=== PATIENT | female | born 1980 | race Caucasian/White ===

== ENCOUNTER 2021-06-19 15:37 | Emergency (ER) | payer SELFPAY ==
[~2021-06-19] VITALS: Ht 172.7 cm; Wt 59.9 kg
[2021-06-19 15:55] VITALS: BP 124/74
[2021-06-19] MEDS ORDERED: CEPH500T PO (16:33)
[2021-06-19] MEDS ORDERED: IBUP-1955 PO (16:33)
== END 2021-06-19 16:45 | disposition home or self-care (01) ==
LOC: ER 15:39
DX: M79.641 Pain in right hand (principal); M79.89 Other specified soft tissue disorders; Z60.2 Problems related to living alone
CPT/HCPCS: 73130-TC